=== PATIENT | male | born 1990 | race Caucasian/White ===

== ENCOUNTER 2018-02-07 01:59 | Emergency (ER) | payer OTHER ==
[~2018-02-07] VITALS: Ht 180.3 cm; Wt 117.9 kg
[2018-02-07 01:59] VITALS: BP_SYST 136
[2018-02-07 02:16] VITALS: BP_SYST 136
== END 2018-02-07 02:16 ==
LOC: SED 01:59
DX: Z02.89 Encounter for other administrative examinations (principal)
CPT/HCPCS: 99283